=== PATIENT | male | born 2000 | race Caucasian/White ===

== ENCOUNTER 2019-09-24 10:08 | Inpatient (IN) | payer OTHER ==
--- NOTE | 2019-09-24 10:37 | ED ---
Psych HPI - General Chief Complaint: Psychiatric Symptoms Stated Complaint: suicidal Time Seen by Provider: 09/24/19 10:10 Source: patient Mode of arrival: ambulatory - History of Present Illness Initial Comments: 19-year-old male presents emergency department today for evaluation of suicidal ideation without plan. Patient states that he history of depression however has not been on any medications. Patient states he did see a psychiatrist briefly approximately year ago for 4 sessions he states it did not seem to help. Patient states the past 2 days he has had increasing suicidal ideation. He states he has no specific plan it did not make an attempt. Denies ingestion of medications or attempted overdose. Patient states he told his parents brought his suicide ideations and they contacted his primary care provider today and it was advised that he comes to emergency department for psychiatric evaluation. Patient has no other complaints. Denies homicidal ideation, and states that he feels safe in his home environment. Remaining review of systems negative patient denies any specific aggravating life events. - Related Data Home Medications Medication Instructions Recorded Confirmed No Known Home Medications 09/24/19 09/24/19 Allergies Allergy/AdvReac Type Severity Reaction Status Date / Time No Known Allergies Allergy Verified 09/24/19 10:51 Review of Systems ROS Statement: Those systems with pertinent positive or pertinent negative responses have been documented in the HPI. ROS Other: All systems not noted in ROS Statement are negative. Past Medical History Past Medical History: No Reported History History of Any Multi-Drug Resistant Organisms: None Reported Additional Past Surgical History / Comment(s): dental sx Past Psychological History: Anxiety, Depression Smoking Status: Current some day smoker Past Alcohol Use History: Occasional Past Drug Use History: Marijuana General Exam - General Exam Comments Initial Comments: General: The patient is awake and alert, in no distress, and does not appear acutely ill. Eye: +3 mm pupils are equal, round and reactive to light, extra-ocular movements are intact. No nystagmus. There is normal conjunctiva bilaterally. No signs of icterus. Wears black rimmed glasses. Ears, nose, mouth and throat: There are moist mucous membranes and no oral lesions. Neck: The neck is supple, there is no tenderness or JVD. Cardiovascular: There is a regular rate and rhythm. No murmur, rub or gallop is appreciated. Respiratory: Lungs are clear to auscultation, respirations are non-labored, breath sounds are equal. No wheezes, stridor, rales, or rhonchi. Gastrointestinal: Soft, non-distended, non-tender abdomen without masses or organomegaly noted. There is no rebound or guarding present. Musculoskeletal: Normal ROM, no tenderness. Strength 5/5. Sensation intact. Pulses equal bilaterally 2+. Neurological: A&O x 3. CN II-XII intact grossly, There are no obvious motor or sensory deficits. Coordination appears grossly intact. Speech is normal. Skin: Skin is warm and dry and no rashes or lesions are noted. Psychiatric: Cooperative, flat affect Limitations: no limitations Course Vital Signs 09/24/19 09/24/19 10:12 11:20 Temperature 98.4 F Pulse Rate 103 H 98 Respiratory 18 16 Rate Blood Pressure 136/88 120/76 O2 Sat by Pulse 98 Oximetry Medical Decision Making - Medical Decision Making 19-year-old male presenting to my part for evaluation of suicidal ideation no plan. No previous history of suicidal ideation. Patient will be admitted after psychiatry evaluated and consulted patient. Patient agrees to go inpatient voluntarily. - Lab Data Lab Results 09/24/19 Range/Units 10:30 Urine Color Light Yellow Urine Appearance Clear (Clear) Urine pH 7.0 (5.0-8.0) Ur Specific [place] 1.017 (1.001-1.035) Urine Protein Negative (Negative) Urine Glucose (UA) Negative (Negative) Urine Ketones Negative (Negative) Urine Blood Negative (Negative) Urine Nitrite Negative (Negative) Urine Bilirubin Negative (Negative) Urine Urobilinogen <2.0 (<2.0) mg/dL Ur Leukocyte Esterase Negative (Negative) Urine Opiates Screen Not Detected (NotDetected) Ur Oxycodone Screen Not Detected (NotDetected) Urine Methadone Screen Not Detected (NotDetected) Ur Propoxyphene Screen Not Detected (NotDetected) Ur Barbiturates Screen Not Detected (NotDetected) U Tricyclic Antidepress Not Detected (NotDetected) Ur Phencyclidine Scrn Not Detected (NotDetected) Ur Amphetamines Screen Not Detected (NotDetected) U Methamphetamines Scrn Not Detected (NotDetected) U Benzodiazepines Scrn Not Detected (NotDetected) Urine Cocaine Screen Not Detected (NotDetected) U Marijuana (THC) Screen Detected H (NotDetected) Disposition Clinical Impression: Suicidal intent, Suicidal ideation Disposition: TRANSFER TO PSYCH HOSP/UNIT Condition: Stable Is patient prescribed a controlled substance at d/c from ED?: No Referrals: Sayra Nolan MD [Primary Care Provider] - 1-2 days Time of Disposition: 12:37 Decision to Admit Reason: Admit from EC Decision Date: 09/24/19 Decision Time: 12:38
[2019-09-24 10:55] LABS: Appearance,Urine Clear (Clear); Bilirubin,Urine Negative (Negative); Blood,Urine Negative (Negative); Color,Urine Light Yellow; Glucose,Urine (UA) Negative (Negative); Ketones,Urine Negative (Negative); Leukocyte Esterase,Urine Negative (Negative); Nitrite,Urine Negative (Negative); Protein,Urine Negative (Negative); Specific Gravity,Urine 1.017 (1.001-1.035); Urobilinogen,Urine <2.0 mg/dL (<2.0)
[2019-09-24 10:56] LABS: Amphetamine Screen,Urine Not Detected (NotDetected); Barbiturate Screen,Urine Not Detected (NotDetected); Benzodiazepines Screen,Urine Not Detected (NotDetected); Cocaine Screen,Urine Not Detected (NotDetected); Methadone Screen, Urine Not Detected (NotDetected); Opiate Screen,Urine Not Detected (NotDetected); Oxycodone Screen, Urine Not Detected (NotDetected); Phencyclidine Screen,Urine Not Detected (NotDetected); Tricyclic Antidepressant,Urine Not Detected (NotDetected); Urn Cannabinoid Scrn Detected (NotDetected)
[2019-09-24] MEDS ORDERED: MAGNESIUM HYDROXIDE 2,400 MG/10 ML CUP PO PRN (16:03)
[2019-09-24] MEDS ORDERED: ACETAMINOPHEN TAB 325 MG TAB PO PRN (16:03)
[2019-09-24] MEDS ORDERED: MAG HYDROX/AL HYDROX/SIMETH 30 ML CUP PO PRN (16:03)
[2019-09-24] MEDS ORDERED: LORazepam 1 MG TAB PO PRN (16:03)
[2019-09-24] MEDS ORDERED: LORazepam 2 MG/ML INJ IM PRN (16:05)
[2019-09-25 07:56] LABS: Basophils % (A) 0 %; Eosinophils # (A) 0.1 k/uL (0-0.7); Eosinophils % (A) 1 %; HCT 43.2 % (39.0-53.0); HGB 14.5 gm/dL (13.0-17.5); Lymphocytes # (A) 3.1 k/uL (1.0-4.8); Lymphocytes % (A) 40 %; MCH 28.5 pg (25.0-35.0); MCHC 33.5 g/dL (31.0-37.0); MCV 85.2 fL (80.0-100.0); Mean Platelet Volume 6.1; Monocytes # (A) 0.4 k/uL (0-1.0); Monocytes % (A) 5 %; Neutrophils # (A) 4.1 k/uL (1.3-7.7); Neutrophils % (A) 52 %; Platelet Count 303 k/uL (150-450); RBC 5.08 m/uL (4.30-5.90); RDW 13.5 % (11.5-15.5); WBC 7.7 k/uL (4.0-11.0)
[2019-09-25 08:08] LABS: ALT 33 U/L (21-72); AST 21 U/L (17-59); African American GFR (CKD) >90 (>60 ml/min/1.73 sqM); Albumin 4.7 g/dL (3.5-5.0); Alkaline Phosphatase 73 U/L (38-126); Anion Gap 10 mmol/L; Blood Urea Nitrogen 10 mg/dL (9-20); Calcium 9.8 mg/dL (8.4-10.2); Carbon Dioxide 29 mmol/L (22-30); Chloride 104 mmol/L (98-107); Cholesterol 137 mg/dL (<200); Glucose 102 mg/dL (74-99); HDL Cholesterol 29 mg/dL (40-60); LDL Cholesterol,Calculated 76 mg/dL (0-99); Non-African American GFR(CKD) >90 (>60 ml/min/1.73 sqM); Potassium 4.3 mmol/L (3.5-5.1); Sodium 143 mmol/L (137-145); Total Bilirubin 0.9 mg/dL (0.2-1.3); Total Protein 7.9 g/dL (6.3-8.2); Triglycerides 161 mg/dL (<150)
[2019-09-25] MEDS: NICOTINE 7MG/24HR PATCH TRANSDERM SCH (09:34)
[2019-09-25] MEDS ORDERED: hydrOXYzine PAMOATE 25 MG CAP PO PRN (10:30)
[2019-09-25] MEDS ORDERED: LORazepam 0.5 MG TAB PO PRN (10:32)
--- NOTE | 2019-09-25 11:03 | P.HP ---
Psychiatric H&P - . 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 The patient has been admitted to our inpatient psychiatric services after been transferred from [facility]. Patient was initially self referred to the ER because of worsening depression and suicidal thoughts. The patient has been admitted on voluntary basis to our service. CHIEF COMPLAINT: "suicidal thoughts." HISTORY OF PRESENT ILLNESS: The patient presents to the emergency department because of worsening depression and of suicidal ideation. He reports history of depression symptoms but he never started on any medications. Patient reports for 2 days prior to coming to ER has been feeling more suicidal. Even he has no specific plan, that he didn't feel safe and when discussed his thoughts with his primary physician, it was recommended for him to come to the hospital. The patient reports his suicidal thoughts a started for first time about 3-4 months ago and he continued to have these thoughts "on and off" for the last few month but 2 days ago he was feeling extremely depressed and suicidal. He reports his depression is started when he was at eighth grade and he couldn't remember any social or psychological factors caused him to feel depressed. He reports continued to have episodes of severe depression during which he would feel decreased motivation, lack of interest, loss of happiness and afshan, feeling hopeless, helpless, and sometimes suicidal. He reports had suicidal thoughts for the last 4 months but he never has plan or intent to hurt himself. Patient reports there are hunting rifles where he lives. Patient reports symptoms of anxiety which only provoked by certain situation like social stress and he is an anxiety is only occasional. He reports previous times he was feeling extremely overwhelmed, tense and jumping when he was driving during a storm. He reports his anxiety could be provoked by social interactions. Reports social anxiety and sometimes has panic attacks "only happened twice". Reports last time has panic attack was 4 months ago. In regard of PTSD symptoms; patient denies symptoms of flashbacks, nightmares and intrusive thoughts related to prior psychological traumas. Regarding OCD symptoms, Patient denies symptoms of repeated, persistent unwanted thoughts, urges or images that are intrusive and cause severe distress and anxiety. Patient denies current or previous symptoms of dereck including episodes of euphoric or irritable mood, impulsive uninhibited behavior, bursts of very high energy, or lack need to sleep due to increased activities. He denies any current or previous symptoms of psychosis including auditory or visual hallucinations, paranoid ideation, and no delusions could be elicited. Patient denies any history of self-injurious behavior. PAST PSYCHIATRIC HISTORY: Previous diagnoses: Depressive disorder, Diagnosed by therapist Previous psychiatric hospitalizations: Denies. Previous suicide attempts: Denies. Previous outpatient psychiatric treatment: Only 4 sessions of therapy more than a year ago. Never started on any psychiatric medications SUBSTANCE ABUSE HISTORY: Nicotine: History of using tobacco products, used to dip nicotine paced with the last time 4 years ago. Alcohol: Very occasional with average 1 drink every 2 months, denies any history of DUIs or alcohol withdrawal symptoms. Reports is smoking marijuana on a regular basis with average twice a week. Started last January, and last time used marijuana was 4 days ago. Denies any history of using other street drugs including opioids, methamphetamine, or cocaine. Denies any history of IV drug use. Denies any history of substance use disorder treatment. Social History: Patient was born in [facility] and raised up by both parents. Housing: Currently lives with his parents. Patient never , and has no children. Last time was in relationship was May 2019. Has 2 siblings, one older sister and one younger sister. 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 Education: Patient reports attaining an educational level of high school diploma, and he is planning to go to college. Legal history:Denies any history of legal problems History of psychological trauma:Denies any history of abuse or childhood trauma besides he considered his grandfather in 2008 was hard on him, and he reports one of his cousins after overdosed on heroin 2 years ago. Denies any history of flashbacks or nightmares FAMILY HISTORY: Psychiatric Illness: Reports his mother diagnosed with depression and she is taking psychiatric medications. Substance abuse: Denies any family history of addiction besides his cousin was addicted to heroin. Completed Suicides: Denies any family history of suicide. Medical History: Overweight, obesity No known drug ALLERGY MENTAL STATUS EVALUATION: Appearance: Appears stated age,fairly groomed,above average body built, and no specific features. Gait/ posture: Steady gait, normal arm swinging, no abnormal movements, with relaxed posture. Attitude and Behavior: Cooperative, engaged, related to the interviewer in socially accepted manner, fair eye contact during course of interview. Motor Activity: Normal psychomotor activity. Speech: spontaneous, normal rate, rhythm, and articulation. normal volume. Not pressured. Language: Articulating, naming objects and repeat phrases. Mood: "depressed" Affect: Restricted range. Thought process: Linear, goal directed.. Association: Intact. Thought content: denies delusions, reports suicidal thoughts, denies homicidal thoughts, denies intentions, or plans. Perception: Denies any hallucinations. Alertness: No impairment. Concentration: Impaired Orientation: Alert and oriented to time, person, place and situation. Insight regarding psychiatric condition: Fair Judgment regarding daily activities and social situation: Fair Impulse control: fair. Strengths: Stable housing. No financial problems. Social support- family Challenges: Limited access to treatment. Limited coping skills Allergies Allergy/AdvReac Type Severity Reaction Status Date / Time No Known Allergies Allergy Verified 09/24/19 10:51 Vital Signs Temp 97.5 F L 09/25/19 06:04 Pulse 71 09/25/19 06:04 Resp 15 09/25/19 06:04 BP 109/68 09/25/19 06:04 Pulse Ox 98 09/24/19 10:12 Intake & Output 09/24/19 09/25/19 09/25/19 18:59 06:59 18:59 Weight 158.757 kg 131.995 kg Review of Lab results: Laboratory Last Values WBC 7.7 k/uL (4.0-11.0) 09/25/19 07:26 RBC 5.08 m/uL (4.30-5.90) 09/25/19 07:26 Hgb 14.5 gm/dL (13.0-17.5) 09/25/19 07:26 Hct 43.2 % (39.0-53.0) 09/25/19 07:26 MCV 85.2 fL (80.0-100.0) 09/25/19 07:26 MCH 28.5 pg (25.0-35.0) 09/25/19 07:26 MCHC 33.5 g/dL (31.0-37.0) 09/25/19 07:26 RDW 13.5 % (11.5-15.5) 09/25/19 07:26 Plt Count 303 k/uL (150-450) 09/25/19 07:26 Neutrophils % 52 % 09/25/19 07:26 Lymphocytes % 40 % 09/25/19 07:26 Monocytes % 5 % 09/25/19 07:26 Eosinophils % 1 % 09/25/19 07:26 Basophils % 0 % 09/25/19 07:26 Neutrophils # 4.1 k/uL (1.3-7.7) 09/25/19 07:26 Lymphocytes # 3.1 k/uL (1.0-4.8) 09/25/19 07:26 Monocytes # 0.4 k/uL (0-1.0) 09/25/19 07:26 Eosinophils # 0.1 k/uL (0-0.7) 09/25/19 07:26 Basophils # 0.0 k/uL (0-0.2) 09/25/19 07:26 Sodium 143 mmol/L (137-145) 09/25/19 07:26 Potassium 4.3 mmol/L (3.5-5.1) 09/25/19 07:26 Chloride 104 mmol/L (98-107) 09/25/19 07:26 Carbon Dioxide 29 mmol/L (22-30) 09/25/19 07:26 Anion Gap 10 mmol/L 09/25/19 07:26 BUN 10 mg/dL (9-20) 09/25/19 07:26 Creatinine 0.85 mg/dL (0.66-1.25) 09/25/19 07:26 Est GFR (CKD-EPI)AfAm >90 (>60 ml/min/1.73 sqM) 09/25/19 07:26 Est GFR (CKD-EPI)NonAf >90 (>60 ml/min/1.73 sqM) 09/25/19 07:26 Glucose 102 mg/dL (74-99) H 09/25/19 07:26 Calcium 9.8 mg/dL (8.4-10.2) 09/25/19 07:26 Total Bilirubin 0.9 mg/dL (0.2-1.3) 09/25/19 07:26 AST 21 U/L (17-59) 09/25/19 07:26 ALT 33 U/L (21-72) 09/25/19 07:26 Alkaline Phosphatase 73 U/L (38-126) 09/25/19 07:26 Total Protein 7.9 g/dL (6.3-8.2) 09/25/19 07:26 Albumin 4.7 g/dL (3.5-5.0) 09/25/19 07:26 Triglycerides 161 mg/dL (<150) H 09/25/19 07:26 Cholesterol 137 mg/dL (<200) 09/25/19 07:26 LDL Cholesterol, Calc 76 mg/dL (0-99) 09/25/19 07:26 HDL Cholesterol 29 mg/dL (40-60) L 09/25/19 07:26 TSH 1.990 mIU/L (0.465-4.680) 09/25/19 07:26 Urine Color Light Yellow 09/24/19 10:30 Urine Appearance Clear (Clear) 09/24/19 10:30 Urine pH 7.0 (5.0-8.0) 09/24/19 10:30 Ur Specific [place] 1.017 (1.001-1.035) 09/24/19 10:30 Urine Protein Negative (Negative) 09/24/19 10:30 Urine Glucose (UA) Negative (Negative) 09/24/19 10:30 Urine Ketones Negative (Negative) 09/24/19 10:30 Urine Blood Negative (Negative) 09/24/19 10:30 Urine Nitrite Negative (Negative) 09/24/19 10:30 Urine Bilirubin Negative (Negative) 09/24/19 10:30 Urine Urobilinogen <2.0 mg/dL (<2.0) 09/24/19 10:30 Ur Leukocyte Esterase Negative (Negative) 09/24/19 10:30 Urine Opiates Screen Not Detected (NotDetected) 09/24/19 10:30 Ur Oxycodone Screen Not Detected (NotDetected) 09/24/19 10:30 Urine Methadone Screen Not Detected (NotDetected) 09/24/19 10:30 Ur Propoxyphene Screen Not Detected (NotDetected) 09/24/19 10:30 Ur Barbiturates Screen Not Detected (NotDetected) 09/24/19 10:30 U Tricyclic Antidepress Not Detected (NotDetected) 09/24/19 10:30 Ur Phencyclidine Scrn Not Detected (NotDetected) 09/24/19 10:30 Ur Amphetamines Screen Not Detected (NotDetected) 09/24/19 10:30 U Methamphetamines Scrn Not Detected (NotDetected) 09/24/19 10:30 U Benzodiazepines Scrn Not Detected (NotDetected) 09/24/19 10:30 Urine Cocaine Screen Not Detected (NotDetected) 09/24/19 10:30 U Marijuana (THC) Screen Detected (NotDetected) H 09/24/19 10:30 Assessment: Major depressive disorder, recurrent, moderate without psychotic features. Rule out social anxiety. TREATMENT PLAN/RECOMMENDATIONS: Medical Decision making: The patient presented with depression and suicidal ideation. The patient at high risk to hurt himself if he is not in the inpatient setting. The patients psychiatric symptoms are not stable and he needs further management of psychiatric medications and further planning for discharge. Therefore, inpatient level of care is needed. Continue the patient inpatient for safety. Continue the patient under 15 minutes safe check for safety. Continue treatment of depression. Psych education regarding about his diagnosis, and treatment option. The patient will also be provided with individual therapy, group therapy, substance abuse counseling, gain insight, and coping skills. Consider medical consultation if any acute medical issue arise. Medications: Started Effexor XR 37.5 mg daily for depression and anxiety symptoms. Start Vistaril 25 mg 4 times a day today as needed for anxiety Prognosis is fair, contingent on patient has been compliant with his medications and has been followed up closely with outpatient mental health provider after discharge. The patient will be assessed on daily basis for his depression, suicidal ideation, and will be discharged back to his outpatient mental health provider upon stabilization. EXPECTED LENGTH OF STAY: 3-5 days. 09/25/19 11:02
[2019-09-25] MEDS: VENLAFAXINE HCL ER 37.5 MG CAP PO SCH (12:01)
[2019-09-25 12:48] LABS: Hemoglobin A1C 5.5 % (4.0-6.0)
[2019-09-25] MEDS ORDERED: LOPERAMIDE 2 MG CAP PO STA (18:41)
--- NOTE | 2019-09-25 19:41 | P.CONS ---
History of Present Illness - Reason for Consult Consult date: 09/25/19 Medical management Requesting physician: Alvin Kent - Chief Complaint Suicidal - History of Present Illness Consultation: Patient of Dr. Court Nolan. Patient works at [place] for [employer]. 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 Does lift [place]. Patient does not take any medication depression. He disowning getting depressed more and more, not sure why. Started getting suicidal ideation and decided to tell his parents. Both the ER admitted for the same. Appetite is fair. No nausea vomiting. No trouble sleeping. No pain issues. Patient doing well at his work. 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 This Traci. Denies any alcohol smoking does marijuana about twice a week. Occasional beer. Family history: Depression Physical examination: VITAL SIGNS: 98.4, 103, 18, 136/88, 98% room air GENERAL: BMI 40.6, sitting up, comfortable. EYES: Pupils equal. Conjunctiva normal. HEENT: External appearance of nose and ears normal, oral cavity grossly normal. NECK: JVD not raised; masses not palpable. HEART: First and second heart sounds are normal; no edema. LUNGS: Respiratory rate normal; clear to auscultation. ABDOMEN: Soft, nontender, liver spleen not palpable, no masses palpable. PSYCH: Alert and oriented x3; mood and affect normal. NEUROLOGICAL: Cranial nerves grossly intact; no facial asymmetry, power and sensation grossly intact. LYMPHATICS: No lymph nodes palpable in the axilla and neck INVESTIGATIONS, reviewed in the clinical context: White count 7.7 hemoglobin 40.5 pressure 4.3 crit 0.85 Urine drug screen positive for marijuana Assessment: -Morbid obesity BMI 40.6 -Recreational marijuana use -Major depressive disorder without psychotic features Plan: Told patient to exercise and lose some weight. Await recreational drugs. Other medications per the psychiatrist. Follow up with her family doctor upon discharge. Thank you Dr. kent Past Medical History Past Medical History: No Reported History History of Any Multi-Drug Resistant Organisms: None Reported Additional Past Surgical History / Comment(s): dental sx Past Psychological History: Anxiety, Depression Smoking Status: Former smoker Past Alcohol Use History: Occasional Past Drug Use History: Marijuana Medications and Allergies Home Medications Medication Instructions Recorded Confirmed Type No Known Home Medications 09/24/19 09/24/19 History Allergies Allergy/AdvReac Type Severity Reaction Status Date / Time No Known Allergies Allergy Verified 09/24/19 10:51 Physical Exam Vitals: Vital Signs Temp Pulse Pulse Pulse Resp BP BP 09/25/19 06:04 97.5 F L 71 15 109/68 09/24/19 16:27 98.4 F 114 H 16 09/24/19 11:20 98 16 120/76 09/24/19 10:12 98.4 F 103 H 18 136/88 BP Pulse Ox 09/25/19 06:04 09/24/19 16:27 153/95 09/24/19 11:20 09/24/19 10:12 98 Intake and Output 09/24/19 09/25/19 09/25/19 22:59 06:59 14:59 Other: Weight 131.995 kg Results CBC & Chem 7: 09/25/19 07:26 09/25/19 07:26 Labs: Abnormal Lab Results - Last 24 Hours (Table) 09/24/19 09/25/19 Range/Units 10:30 07:26 Glucose 102 H (74-99) mg/dL Triglycerides 161 H (<150) mg/dL HDL Cholesterol 29 L (40-60) mg/dL U Marijuana (THC) Screen Detected H (NotDetected)
[2019-09-26 06:29] VITALS: TEMP 98.3
[2019-09-26] MEDS: NICOTINE 7MG/24HR PATCH TRANSDERM SCH (09:28)
[2019-09-26] MEDS: VENLAFAXINE HCL ER 37.5 MG CAP PO SCH (09:28)
--- NOTE | 2019-09-26 11:18 | P.PN ---
Progress Note - Text Progress Note Date: 09/26/19 Chief complaint: "I feel better today " Subjective: The patient has been seen today as follow-up, chart reviewed, case discussed with the treatment team. Patient slept about 6 hours last night. Patient has been going to groups and other unit activities. Patient reports fair appetite. Patient minimizes depression and he denies feeling hopeless or suicidal. Patient was talking about going to groups and gives him some insight about coping skills and change his way of thinking. He feels more positive and he denies feeling hopeless, worthless, or suicidal. He denies any severe anxiety or panic attacks. He denies any manic or psychotic symptoms. Discussed with the patient possible discharge tomorrow and he agreed with the plan. Discussed with the social work or to call the family and secure guns at home. The patient is compliant with his medications and denies any adverse reactions. Today, the patient reports last time had any suicidal thoughts was 2 days ago. Review of other systems: Patient denies any physical symptoms besides what has been mentioned above. No breathing problems, no chest pain reported today. Objective: Vitals has been reviewed. MENTAL STATUS EVALUATION: Appearance: Appears stated age,fairly groomed,above average body built, and no specific features. Gait/ posture: Steady gait, normal arm swinging, no abnormal movements, with relaxed posture. Attitude and Behavior: Cooperative, engaged, related to the interviewer in socially accepted manner, fair eye contact during course of interview. Motor Activity: Normal psychomotor activity. Speech: spontaneous, normal rate, rhythm, and articulation. normal volume. Not pressured. Language: Articulating, naming objects and repeat phrases. Mood: "fine" Affect: Normal range. Thought process: Linear, goal directed.. Association: Intact. Thought content: denies delusions, denies suicidal thoughts, denies homicidal thoughts, denies intentions, or plans. Perception: Denies any hallucinations. Alertness: No impairment. Orientation: Alert and oriented to time, person, place and situation. Insight regarding psychiatric condition: Fair Judgment regarding daily activities and social situation: Fair Impulse control: fair. Assessment: Major depressive disorder, recurrent, moderate without psychotic features. Rule out social anxiety. Plan: Continue inpatient level of care for further stabilizaton on medications. Continue treatment of depressive disorder Precautions: Continue 15 minutes check for safety. Consider medical consultation if any acute medical issues arise. Provide the patient individual, group therapy, substance use disorder counseling to give better insight and learn coping skills. Medications: Increase Effexor XR 75 mg daily for depression and anxiety symptoms. Continue Vistaril 25 mg 4 times a day today as needed for anxiety Discharge patient to OUTPATIENT services upon a stabilization Prognosis: Improving Expected LOS: 1-2 days.
[2019-09-27 06:40] VITALS: BP 124/58; PULSE 77; RESP 15
[2019-09-27] MEDS ORDERED: VENLAFAXINE HCL ER 75 MG CAP PO SCH (09:00)
--- NOTE | 2019-09-27 09:45 | P.DS ---
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 The patient has been admitted to our inpatient psychiatric services after been transferred from [facility] ER. Patient was initially self referred to the ER because of worsening depression and suicidal thoughts. The patient has been admitted on voluntary basis to our service. The patient presents to the emergency department because of worsening depression and of suicidal ideation. He reports history of depression symptoms but he never started on any medications. Patient reports for 2 days prior to coming to ER has been feeling more suicidal. Even he has no specific plan, but he didn't feel safe and when discussed his thoughts with his primary physician, it was recommended for him to come to the hospital. The patient reports his suicidal thoughts a started for first time about 3-4 months ago and he continued to have these thoughts "on and off" for the last few month but 2 days ago he was feeling extremely depressed and suicidal. He reports his depression is started when he was at eighth grade and he couldn't remember any social or psychological factors caused him to feel depressed. He reports continued to have episodes of severe depression during which he would feel decreased motivation, lack of interest, loss of happiness and afshan, feeling hopeless, helpless, and sometimes suicidal. He reports had suicidal thoughts for the last 4 months but he never has plan or intent to hurt himself. Patient reports there are hunting rifles where he lives. Patient reports symptoms of anxiety which only provoked by certain situation like social stress and he is an anxiety is only occasional. He reports previous times he was feeling extremely overwhelmed, tense and jumping when he was driving during a storm. He reports his anxiety could be provoked by social interactions. Reports social anxiety and sometimes has panic attacks "only happened twice". Reports last time has panic attack was 4 months ago. In regard of PTSD symptoms; patient denies symptoms of flashbacks, nightmares and intrusive thoughts related to prior psychological traumas. Regarding OCD symptoms, Patient denies symptoms of repeated, persistent unwanted thoughts, urges or images that are intrusive and cause severe distress and anxiety. Patient denies current or previous symptoms of dereck including episodes of euphoric or irritable mood, impulsive uninhibited behavior, bursts of very high energy, or lack need to sleep due to increased activities. He denies any current or previous symptoms of psychosis including auditory or visual hallucinations, paranoid ideation, and no delusions could be elicited. Patient denies any history of self-injurious behavior. " Hospital Course: The patient was initiated on psychotropic medication Effexor for depression and anxiety. The medication doses has been adjusted to optimize the stability of the psychiatric symptoms, and to avoid side effects. Patient tolerated the above medication/s very well, without side effects. The patient was admitted for a safe and supportive environment. A psychiatric, medical, and psychosocial evaluations were done on admission. The patient's hospital stay is unremarkable. The patient attended most of the groups to obtain coping skills and process stress. Patient was compliant with his medica tions. Patient got along with his peers and with staff. The objective signs of depression have been improved. Patient denies any suicidal ideation, not made any hopelessness/helplessness statements for more than 3 days prior to discharge. Maximum hospitalization benefit was reached and subsequently discharge was planned, and patient is appropriate to continue treatment on an outpatient basis. On the day of discharge the patient was able to create an appropriate safety plan and denies any side effect of medications. Therer was no requirements for emergency medications or restraints during this hospital stay. Discussion was held about need to stop use of marijuana , including its effects on mood, interaction with psychiatric medications, and its role in events leading up to admission. Patient is in the pre-contemplative stage of a change. Assessment: Assessment at the day of discharge: The patient was seen at the day of discharge. Patient denies any sleep or appetite disturbances, denies feeling hopeless, worthless or helpless. Also, patient denies any other depressive or manic symptoms. Patient denies any psychotic symptoms. Patient denies suicidal or homicidal thoughts, intention or plans. Nurses and therapist reported patient is psychiatrically stable, and agreed to discharge plan. Mental status examination on discharge: Appearance: Appears stated age,fairly groomed,above average body built, and no specific features. Gait/ posture: Steady gait, normal arm swinging, no abnormal movements, with relaxed posture. Attitude and Behavior: Cooperative, engaged, related to the interviewer in socially accepted manner, fair eye contact during course of interview. Motor Activity: Normal psychomotor activity. Speech: spontaneous, normal rate, rhythm, and articulation. normal volume. Not pressured. Language: Articulating, naming objects and repeat phrases. Mood: "fine" Affect: Normal range. Thought process: Linear, goal directed.. Association: Intact. Thought content: denies delusions, denies suicidal thoughts, denies homicidal thoughts, denies intentions, or plans. Perception: Denies any hallucinations. Alertness: No impairment. Orientation: Alert and oriented to time, person, place and situation. Insight regarding psychiatric condition: Fair Judgment regarding daily activities and social situation: Fair Impulse control: fair. Discharge diagnoses: Major depressive disorder, recurrent, moderate without psychotic features. Rule out social anxiety. Rule out Cannabis use disorder. Health Concerns: Activity: As tolerated Diet: Regular Special Instructions: Labs to be completed after discharge: As clinically indicated by his outpatient psychiatrist and PCP. Discharge checklist for suicide and violence to determine stability: Safety plan was discussed with the patient. Patient denies any current suicidal/ homicidal or violent ideation/plan/ intent. Patient has ability to address stressors/emotions. Patient understands and is comfortable with discharge plan. Outpatient appointments is near [facility] [place] Emergency number (911, crisis number) provided to the patient. 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 Avoid the use of street drugs and alcohol. Take all medications as prescribed. When you are in need of refills please contact your medical provider and/or outpatient psychiatrist to have this done. Please go to scheduled outpatient appointment for aftercare. If symptoms return or become worse call the crisis line at and/or go to the nearest emergency room for an evaluation. Pertinent Studies: Laboratory Tests Range/Units 09/24/19 09/25/19 09/25/19 10:30 07:26 07:26 WBC (4.0-11.0) k/uL 7.7 RBC (4.30-5.90) m/uL 5.08 Hgb (13.0-17.5) gm/dL 14.5 Hct (39.0-53.0) % 43.2 MCV (80.0-100.0) fL 85.2 MCH (25.0-35.0) pg 28.5 MCHC (31.0-37.0) g/dL 33.5 RDW (11.5-15.5) % 13.5 Plt Count (150-450) k/uL 303 Neutrophils % % 52 Lymphocytes % % 40 Monocytes % % 5 Eosinophils % % 1 Basophils % % 0 Neutrophils # (1.3-7.7) k/uL 4.1 Lymphocytes # (1.0-4.8) k/uL 3.1 Monocytes # (0-1.0) k/uL 0.4 Eosinophils # (0-0.7) k/uL 0.1 Basophils # (0-0.2) k/uL 0.0 Sodium (137-145) mmol/L Potassium (3.5-5.1) mmol/L Chloride (98-107) mmol/L Carbon Dioxide (22-30) mmol/L Anion Gap mmol/L BUN (9-20) mg/dL Creatinine (0.66-1.25) mg/dL Est GFR (CKD-EPI)AfAm (>60 ml/min/1.73 sqM) Est GFR (CKD-EPI)NonAf (>60 ml/min/1.73 sqM) Glucose (74-99) mg/dL Estimated Ave Glu mg/dL 111 Hemoglobin A1c (4.0-6.0) % 5.5 Calcium (8.4-10.2) mg/dL Total Bilirubin (0.2-1.3) mg/dL AST (17-59) U/L ALT (21-72) U/L Alkaline Phosphatase (38-126) U/L Total Protein (6.3-8.2) g/dL Albumin (3.5-5.0) g/dL Triglycerides (<150) mg/dL Cholesterol (<200) mg/dL LDL Cholesterol, Calc (0-99) mg/dL HDL Cholesterol (40-60) mg/dL TSH (0.465-4.680) mIU/L Urine Color Light Yellow Urine Appearance (Clear) Clear Urine pH (5.0-8.0) 7.0 Ur Specific [place] (1.001-1.035) 1.017 Urine Protein (Negative) Negative Urine Glucose (UA) (Negative) Negative Urine Ketones (Negative) Negative Urine Blood (Negative) Negative Urine Nitrite (Negative) Negative Urine Bilirubin (Negative) Negative Urine Urobilinogen (<2.0) mg/dL <2.0 Ur Leukocyte Esterase (Negative) Negative Urine Opiates Screen (NotDetected) Not Detected Ur Oxycodone Screen (NotDetected) Not Detected Urine Methadone Screen (NotDetected) Not Detected Ur Propoxyphene Screen (NotDetected) Not Detected Ur Barbiturates Screen (NotDetected) Not Detected U Tricyclic Antidepress (NotDetected) Not Detected Ur Phencyclidine Scrn (NotDetected) Not Detected Ur Amphetamines Screen (NotDetected) Not Detected U Methamphetamines Scrn (NotDetected) Not Detected U Benzodiazepines Scrn (NotDetected) Not Detected Urine Cocaine Screen (NotDetected) Not Detected U Marijuana (THC) Screen (NotDetected) Detected H Range/Units 09/25/19 07:26 WBC (4.0-11.0) k/uL RBC (4.30-5.90) m/uL Hgb (13.0-17.5) gm/dL Hct (39.0-53.0) % MCV (80.0-100.0) fL MCH (25.0-35.0) pg MCHC (31.0-37.0) g/dL RDW (11.5-15.5) % Plt Count (150-450) k/uL Neutrophils % % Lymphocytes % % Monocytes % % Eosinophils % % Basophils % % Neutrophils # (1.3-7.7) k/uL Lymphocytes # (1.0-4.8) k/uL Monocytes # (0-1.0) k/uL Eosinophils # (0-0.7) k/uL Basophils # (0-0.2) k/uL Sodium (137-145) mmol/L 143 Potassium (3.5-5.1) mmol/L 4.3 Chloride (98-107) mmol/L 104 Carbon Dioxide (22-30) mmol/L 29 Anion Gap mmol/L 10 BUN (9-20) mg/dL 10 Creatinine (0.66-1.25) mg/dL 0.85 Est GFR (CKD-EPI)AfAm (>60 ml/min/1.73 sqM) >90 Est GFR (CKD-EPI)NonAf (>60 ml/min/1.73 sqM) >90 Glucose (74-99) mg/dL [address] Glu mg/dL Hemoglobin A1c (4.0-6.0) % Calcium (8.4-10.2) mg/dL 9.8 Total Bilirubin (0.2-1.3) mg/dL 0.9 AST (17-59) U/L 21 ALT (21-72) U/L 33 Alkaline Phosphatase (38-126) U/L 73 Total Protein (6.3-8.2) g/dL 7.9 Albumin (3.5-5.0) g/dL 4.7 Triglycerides (<150) mg/dL 161 H Cholesterol (<200) mg/dL 137 LDL Cholesterol, Calc (0-99) mg/dL 76 HDL Cholesterol (40-60) mg/dL 29 L TSH (0.465-4.680) mIU/L 1.990 Urine Color Urine Appearance (Clear) Urine pH (5.0-8.0) Ur Specific [place] (1.001-1.035) Urine Protein (Negative) Urine Glucose (UA) (Negative) Urine Ketones (Negative) Urine Blood (Negative) Urine Nitrite (Negative) Urine Bilirubin (Negative) Urine Urobilinogen (<2.0) mg/dL Ur Leukocyte Esterase (Negative) Urine Opiates Screen (NotDetected) Ur Oxycodone Screen (NotDetected) Urine Methadone Screen (NotDetected) Ur Propoxyphene Screen (NotDetected) Ur Barbiturates Screen (NotDetected) U Tricyclic Antidepress (NotDetected) Ur Phencyclidine Scrn (NotDetected) Ur Amphetamines Screen (NotDetected) U Methamphetamines Scrn (NotDetected) U Benzodiazepines Scrn (NotDetected) Urine Cocaine Screen (NotDetected) U Marijuana (THC) Screen (NotDetected) Procedures: Plan: Patient will continue follow-up at-. As per discharge plan Continue the following medications: As per discharge plan Patient Condition at Discharge: Stable Patient will be discharge to home Discharge Medication List Venlafaxine HCl ER [Effexor XR] 75 mg PO DAILY #30 cap.er.24h 09/27/19 [Rx] hydrOXYzine PAMOATE [Vistaril] 25 mg PO QID PRN #60 cap 09/27/19 [Rx] Patient Condition at Discharge: Stable Plan - Discharge Summary New Discharge Prescriptions: New Venlafaxine HCl ER [Effexor XR] 75 mg PO DAILY #30 cap.er.24h hydrOXYzine PAMOATE [Vistaril] 25 mg PO QID PRN #60 cap PRN Reason: Anxiety Discharge Medication List Venlafaxine HCl ER [Effexor XR] 75 mg PO DAILY #30 cap.er.24h 09/27/19 [Rx] hydrOXYzine PAMOATE [Vistaril] 25 mg PO QID PRN #60 cap 09/27/19 [Rx] Follow up Appointment(s)/Referral(s): Sayra Nolan MD [Primary Care Provider] - 1-2 days Patient Instructions/Handouts: Suicide Prevention (DC) Activity/Diet/Wound Care/Special Instructions: Activity and diet as tolerated. Avoid the use of street drugs and alcohol. Take all medications as prescribed. When you are in need of refills on your medications please contact your medical provider and/or outpatient psychiatrist to have this done. Please go to scheduled outpatient appointment for aftercare treatment. If symptoms return or become worse, call the crisis line at and/or go to the nearest emergency room for evaluation.
== END 2019-09-27 11:22 | disposition home or self-care (01) | DRG 885 ==
LOC: EC 10:08 → 3MHU 15:35
PROVIDERS: ADMIT Psychiatry & Neurology Psychiatry; ATTEND Psychiatry & Neurology Psychiatry
DX: F33.1 Major depressive disorder, recurrent, moderate (principal); R45.851 Suicidal ideations; Z68.41 Body mass index [BMI] 40.0-44.9, adult; E66.01 Morbid (severe) obesity due to excess calories; F12.90 Cannabis use, unspecified, uncomplicated; F17.200 Nicotine dependence, unspecified, uncomplicated; F41.0 Panic disorder [episodic paroxysmal anxiety]; F40.10 Social phobia, unspecified; Z81.8 Family history of other mental and behavioral disorders
CPT/HCPCS: 80053; 80061; 80306; 81003; 82075; 83036; 84443; 85025; 99285